=== PATIENT | female | born 1930 | race Caucasian/White ===

== ENCOUNTER 2018-04-26 08:05 | Outpatient (CLI) | payer MEDICARE ==
[~2018-04-26 08:05] MED LIST: LIDOCAINE 1%, 10ML ONE
== END 2018-04-26 23:59 | disposition home or self-care (01) ==
LOC: RAD 08:05 → PETCFH 23:59
PROVIDERS: ATTEND Internal Medicine Hematology & Oncology
DX: E04.1 Nontoxic single thyroid nodule (principal)
CPT/HCPCS: 10005; 76536; 78815; 88172; 88173; A9552; J3490; 76942

== ENCOUNTER → 2018-05-01 | Outpatient (CLI) | payer MEDICARE ==
[~2018-05-01] MED LIST changes: -LIDOCAINE 1%, 10ML ONE; +LIDOCAINE-MPF 1%, 5ML ONE
== END | disposition home or self-care (01) ==
LOC: RAD 15:09
PROVIDERS: ATTEND Internal Medicine Hematology & Oncology
DX: C38.4 Malignant neoplasm of pleura (principal)
CPT/HCPCS: 32555; 71045; 84157; 87070; 87205; 88112; 88305; 88341; 88342; 89051

== ENCOUNTER → 2018-05-09 | Outpatient (CLI) | payer MEDICARE | END | disposition home or self-care (01) | LOC: RAD 09:58 | PROVIDERS: ATTEND Internal Medicine Hematology & Oncology | DX: C34.11 Malignant neoplasm of upper lobe, right bronchus or lung (principal) | CPT/HCPCS: 32555 ==